=== PATIENT | female | born 1990 ===

== ENCOUNTER 2019-11-16 05:51 | Inpatient (IN) | payer OTHER ==
[~2019-11-16] VITALS: Ht 167.6 cm; Wt 3.2 kg
== END 2019-11-18 14:35 | disposition home or self-care (01) | DRG 785 ==
LOC: LDR 05:51 → OB/GYN 05:51
PROVIDERS: ADMIT Obstetrics & Gynecology; ATTEND Obstetrics & Gynecology
PROC: 0UB70ZZ Excision of Bilateral Fallopian Tubes, Open Approach (ICD-10-PCS; 2019-11-16)
PROC: 4A1HXFZ Monitoring of Products of Conception, Cardiac Rhythm, External Approach (ICD-10-PCS; 2019-11-16)
PROC: 3E033VJ Introduction of Other Hormone into Peripheral Vein, Percutaneous Approach (ICD-10-PCS; 2019-11-16)
PROC: 10D00Z1 Extraction of Products of Conception, Low, Open Approach (ICD-10-PCS; principal; 2019-11-16 07:15)
DX: O82 Encounter for cesarean delivery without indication (principal); Z30.2 Encounter for sterilization; O34.211 Maternal care for low transverse scar from previous cesarean delivery; Z37.0 Single live birth; Z3A.38 38 weeks gestation of pregnancy